=== PATIENT | female | born 1975 | race Hispanic/Latino ===

== ENCOUNTER 2017-08-21 13:27 | Inpatient (IN) | payer OTHER ==
[~2017-08-21] VITALS: Ht 154.9 cm; Wt 54.5 kg
[2017-08-21 14:05] LABS: BASOPHILS % (AUTO) 0.7 % (0.0-5.0); EOSINOPHILS % (AUTO) 2.2 % (0.0-8.0); MEAN CORPUSCULAR HGB CONC 34.3 g/dL (32.0-36.0); MEAN CORPUSCULAR VOLUME 81.6 fL (79-99); MONOCYTES % (AUTO) 6.3 % (3.0-13.0); NEUTROPHILS % (AUTO) 62.8 % (40.0-77.0); NUCLEATED RED BLOOD CELLS 0.1 % (0.0-0.19); PLATELET COUNT (AUTO) 200 K/uL (130-400); RED BLOOD CELL COUNT(AUTO) 4.16 MIL/uL (4.00-5.50); WHITE BLOOD COUNT (AUTO) 6.6 K/uL (4.8-10.8)
[2017-08-21 14:18] LABS: APPEARANCE,URINE Cloudy (CLEAR); BILIRUBIN,URINE Negative (NEGATIVE); COLOR,URINE Yellow (YELLOW); GLUCOSE, URINE (UA) Negative (NEGATIVE); KETONES,URINE Negative (NEGATIVE); LEUKOCYTE ESTERASE ,URINE Negative (NEGATIVE); NITRATE,URINE Negative (NEGATIVE); OCCULT BLOOD,URINE Moderate (NEGATIVE); PH,URINE 5.5 (5.0-8.0); PROTEIN,URINE Negative (NEGATIVE); UROBILINOGEN,URINE 0.2 mg/dL (0.2-1.0)
[2017-08-21 14:22] LABS: HCG,QUAL RESULT NEGATIVE (NEGATIVE)
[2017-08-21 14:36] LABS: CREATININE 0.5 mg/dL (0.5-1.5)
[2017-08-21 14:41] LABS: ALBUMIN 3.5 g/dL (3.5-5.0); BILIRUBIN,TOTAL 0.5 mg/dL (0.2-1.0); TOTAL PROTEIN, SERUM 7.8 g/dL (6.0-8.3)
[2017-08-21 14:53] LABS: BACTERIA,URINE Rare /HPF (None Seen); RBC,URINE 0-1 /HPF (0-1); SQUAMOUS EPITHELIAL CELL,UR Rare /HPF (0-2)
[2017-08-21] MEDS ORDERED: TRAMADOL HCL 50 MG TABLET ONE (16:47)
[2017-08-21] MEDS ORDERED: CEFTRIAXONE SODIUM 1 GM ONE (17:10)
[2017-08-21] MEDS ORDERED: SODIUM CHLORIDE 0.9% 50 ML IV ONE (17:10)
[2017-08-21] MEDS ORDERED: SODIUM CHLORIDE 0.9% 1000ML 1,000 ML IV ONE ×2 (17:10→20:23)
[2017-08-21] MEDS ORDERED: MORPHINE SULFATE 4 MG/1ML SYG ONE (17:10)
[2017-08-21] MEDS ORDERED: ONDANSETRON HCL MDV 20ML 2 MG/ML VIAL ONE (17:10)
[2017-08-21] MEDS ORDERED: CEFTRIAXONE 1GM/D5W 50ML 50 ML IV SCH (20:00)
[2017-08-21] MEDS ORDERED: CEFTRIAXONE SODIUM 1 GM IVP SCH (20:00)
[2017-08-21] MEDS ORDERED: FAMOTIDINE 20MG TAB 20 MG TAB PO SCH (20:30)
[2017-08-21] MEDS ORDERED: FAMOTIDINE 20MG TAB 20 MG TAB ONE (21:11)
[2017-08-22] MEDS ORDERED: MORPHINE SULFATE 2 MG/ML 1ML SYG ONE ×2 (00:22→06:33)
[2017-08-22] MEDS ORDERED: ONDANSETRON HCL MDV 20ML 2 MG/ML VIAL ONE (06:33)
[2017-08-22 07:35] LABS: BASOPHILS % (AUTO) 0.5 % (0.0-5.0); EOSINOPHILS % (AUTO) 3.3 % (0.0-8.0); HEMATOCRIT 32.9 % (36-48); LYMPHOCYTES % (AUTO) 26.1 % (21.0-51.0); MEAN CORPUSCULAR HEMOGLOBIN 28.4 pg (27.0-33.0); MEAN CORPUSCULAR HGB CONC 34.1 g/dL (32.0-36.0); MEAN CORPUSCULAR VOLUME 83.1 fL (79-99); MONOCYTES % (AUTO) 7.7 % (3.0-13.0); NEUTROPHILS % (AUTO) 62.4 % (40.0-77.0); PLATELET COUNT (AUTO) 156 K/uL (130-400); RED BLOOD CELL COUNT(AUTO) 3.96 MIL/uL (4.00-5.50); RED CELL DISTRIBUTION WIDTH 14.1 % (11.0-15.5); WHITE BLOOD COUNT (AUTO) 4.8 K/uL (4.8-10.8)
[2017-08-22 07:42] LABS: CREATININE 0.6 mg/dL (0.5-1.5); POTASSIUM 3.3 mmol/L (3.5-5.1)
[2017-08-22 08:15] VITALS: BP 130/68
[2017-08-22] MEDS ORDERED: ZOSYN 3.375GM+NS 50ML 50 ML IV SCH (08:30)
[2017-08-22] MEDS ORDERED: MORPHINE SULFATE 2 MG/ML 1ML SYG IVP PRN (08:45)
[2017-08-22] MEDS: SODIUM CHLORIDE 0.9% 1000ML 1,000 ML IV SCH (09:19)
[2017-08-22] MEDS: MEROPENEM 1 GM VIAL IVP SCH ×2 (09:20→18:10)
[2017-08-22] MEDS: ENOXAPARIN SODIUM 40 MG/0.4 ML SYRINGE SQ SCH (09:48)
[2017-08-22] MEDS ORDERED: MORPHINE SULFATE 2 MG/ML 1ML SYG IM PRN (11:00)
[2017-08-22 12:00] VITALS: BP 139/85
[2017-08-22] MEDS: FAMOTIDINE 20MG TAB 20 MG TAB PO SCH ×2 (12:00→20:31)
[2017-08-22] MEDS: ONDANSETRON HCL MDV 20ML 2 MG/ML VIAL IVP PRN (12:05)
[2017-08-22 16:00] VITALS: BP 125/68
[2017-08-22] MEDS: MORPHINE SULFATE 4 MG/1ML SYG IVP PRN ×2 (17:49→23:47)
[2017-08-22] MEDS: POTASSIUM CHLORIDE 20MEQ/100ML 100 ML IV PRN ×2 (17:58→23:41)
[2017-08-22] MEDS: LIDOCAINE HCL-MPF 1% 2ML VIAL IVP PRN ×2 (17:58→23:41)
[2017-08-22] MEDS: PROMETHAZINE HCL 25 MG/ML 1ML AMPULE IM PRN ×2 (17:58→23:58)
[2017-08-22 20:00] VITALS: BP 137/87
[2017-08-23] VITALS: BP 145/74
[2017-08-23] MEDS: MEROPENEM 1 GM VIAL IVP SCH ×3 (00:01→17:13)
[2017-08-23] MEDS: SODIUM CHLORIDE 0.9% 1000ML 1,000 ML IV SCH ×2 (01:09→17:26)
[2017-08-23 04:00] VITALS: BP 142/77
[2017-08-23 06:01] LABS: HEMATOCRIT 31.8 % (36-48); MEAN CORPUSCULAR HEMOGLOBIN 28.2 pg (27.0-33.0); MEAN CORPUSCULAR HGB CONC 34.3 g/dL (32.0-36.0); MEAN CORPUSCULAR VOLUME 82.2 fL (79-99); PLATELET COUNT (AUTO) 175 K/uL (130-400); RED BLOOD CELL COUNT(AUTO) 3.87 MIL/uL (4.00-5.50); RED CELL DISTRIBUTION WIDTH 14.1 % (11.0-15.5); WHITE BLOOD COUNT (AUTO) 4.3 K/uL (4.8-10.8)
[2017-08-23 06:11] LABS: CREATININE 0.5 mg/dL (0.5-1.5); POTASSIUM 3.7 mmol/L (3.5-5.1)
[2017-08-23 08:00] VITALS: BP 133/95
[2017-08-23] MEDS: FAMOTIDINE 20MG TAB 20 MG TAB PO SCH ×2 (08:05→20:19)
[2017-08-23] MEDS: ENOXAPARIN SODIUM 40 MG/0.4 ML SYRINGE SQ SCH (08:07)
[2017-08-23] MEDS: MORPHINE SULFATE 4 MG/1ML SYG IVP PRN ×3 (08:11→20:18)
[2017-08-23] MEDS: PROMETHAZINE HCL 25 MG/ML 1ML AMPULE IM PRN ×2 (08:11→17:13)
[2017-08-23 12:00] VITALS: BP 134/78
[2017-08-23] MEDS ORDERED: DIATR MEGLU/DIATRIZOATE SODIUM 30 ML BOTTLE ONE (15:34)
[2017-08-23 16:00] VITALS: BP 127/89
[2017-08-23] MEDS ORDERED: IOPAMIDOL-370 75 ML VIAL IV ONE (17:36)
[2017-08-23] MEDS ORDERED: GUAIFENESIN-DM 200/20 MG 10 ML PO PRN (18:00)
[2017-08-23] MEDS: IPRATROPIUM 0.5 MG/2.5 ML INH IH SCH ×2 (19:28→23:50)
[2017-08-23 20:00] VITALS: BP 134/86
[2017-08-24] VITALS: BP 130/85
[2017-08-24] MEDS: MEROPENEM 1 GM VIAL IVP SCH ×3 (02:13→17:48)
[2017-08-24] MEDS: MORPHINE SULFATE 4 MG/1ML SYG IVP PRN ×5 (02:20→23:09)
[2017-08-24] MEDS: PROMETHAZINE HCL 25 MG/ML 1ML AMPULE IM PRN ×4 (02:20→23:12)
[2017-08-24 04:00] VITALS: BP 131/76
[2017-08-24 04:59] LABS: HEMATOCRIT 32.4 % (36-48); MEAN CORPUSCULAR HEMOGLOBIN 28.5 pg (27.0-33.0); MEAN CORPUSCULAR HGB CONC 34.7 g/dL (32.0-36.0); MEAN CORPUSCULAR VOLUME 82.1 fL (79-99); PLATELET COUNT (AUTO) 171 K/uL (130-400); RED BLOOD CELL COUNT(AUTO) 3.95 MIL/uL (4.00-5.50); RED CELL DISTRIBUTION WIDTH 14.3 % (11.0-15.5); WHITE BLOOD COUNT (AUTO) 4.7 K/uL (4.8-10.8)
[2017-08-24 05:09] LABS: CREATININE 0.6 mg/dL (0.5-1.5); POTASSIUM 3.6 mmol/L (3.5-5.1)
[2017-08-24] MEDS: IPRATROPIUM 0.5 MG/2.5 ML INH IH SCH ×4 (06:28→23:20)
[2017-08-24 08:10] VITALS: BP 143/75
[2017-08-24] MEDS: SODIUM CHLORIDE 0.9% 1000ML 1,000 ML IV SCH (08:42)
[2017-08-24] MEDS: POTASSIUM CHLORIDE 20MEQ/100ML 100 ML IV PRN (08:43)
[2017-08-24] MEDS: FAMOTIDINE 20MG TAB 20 MG TAB PO SCH ×3 (08:44→20:07)
[2017-08-24] MEDS: LIDOCAINE HCL-MPF 1% 2ML VIAL IVP PRN (08:44)
[2017-08-24] MEDS: ENOXAPARIN SODIUM 40 MG/0.4 ML SYRINGE SQ SCH (08:45)
[2017-08-24] MEDS: ONDANSETRON HCL MDV 20ML 2 MG/ML VIAL IVP PRN (08:46)
[2017-08-24 11:53] VITALS: BP 158/84
[2017-08-24 16:33] VITALS: BP 132/77
[2017-08-24] MEDS: DEXTROSE 5 % AND 0.9 % NACL 1,000 ML IV SCH (18:35)
[2017-08-24 19:22] VITALS: BP 151/69
[2017-08-25] VITALS (7 sets, daily range): BP systolic 100–145; BP diastolic 69–90
[2017-08-25] MEDS: MEROPENEM 1 GM VIAL IVP SCH ×2 (00:58→08:15)
[2017-08-25 05:48] LABS: HEMATOCRIT 33.7 % (36-48); MEAN CORPUSCULAR HEMOGLOBIN 28.1 pg (27.0-33.0); MEAN CORPUSCULAR HGB CONC 34.3 g/dL (32.0-36.0); MEAN CORPUSCULAR VOLUME 81.9 fL (79-99); PLATELET COUNT (AUTO) 197 K/uL (130-400); RED BLOOD CELL COUNT(AUTO) 4.12 MIL/uL (4.00-5.50); WHITE BLOOD COUNT (AUTO) 5.4 K/uL (4.8-10.8)
[2017-08-25] MEDS: IPRATROPIUM 0.5 MG/2.5 ML INH IH SCH ×4 (07:13→23:03)
[2017-08-25] MEDS: DEXTROSE 5 % AND 0.9 % NACL 1,000 ML IV SCH ×2 (08:15→19:25)
[2017-08-25] MEDS: PROMETHAZINE HCL 25 MG/ML 1ML AMPULE IM PRN ×2 (08:16→13:47)
[2017-08-25] MEDS: MORPHINE SULFATE 4 MG/1ML SYG IVP PRN ×2 (08:16→13:47)
[2017-08-25] MEDS: FAMOTIDINE 20MG TAB 20 MG TAB PO SCH ×2 (08:17→20:07)
[2017-08-25] MEDS: ENOXAPARIN SODIUM 40 MG/0.4 ML SYRINGE SQ SCH (08:17)
[2017-08-25] MEDS ORDERED: PROCALAMINE IV SOLUTION 1,000 ML IV SCH (13:00)
[2017-08-25] MEDS: METRONIDAZOLE 500MG/100ML BAG 100 ML IV SCH ×2 (18:29→23:32)
[2017-08-25] MEDS: LACTATED RINGERS 1000ML 1,000 ML IV SCH (19:19)
[2017-08-25] MEDS: ONDANSETRON HCL MDV 20ML 2 MG/ML VIAL IVP PRN (20:14)
[2017-08-25] MEDS: MEPERIDINE-PF 25 MG/ML SYG IVP PRN ×2 (20:14→23:38)
[2017-08-25] MEDS: CEFTAZIDIME PENTAHYDRATE 1 GM/VIAL IVP SCH (21:51)
[2017-08-25] MEDS ORDERED: CEFTAZIDIME 1GM+NS 50ML 50 ML IV SCH (22:00)
[2017-08-26 04:05] VITALS: BP 110/65
[2017-08-26] MEDS: LACTATED RINGERS 1000ML 1,000 ML IV SCH ×2 (05:16→14:10)
[2017-08-26] MEDS: METRONIDAZOLE 500MG/100ML BAG 100 ML IV SCH ×3 (05:20→17:43)
[2017-08-26] MEDS: CEFTAZIDIME PENTAHYDRATE 1 GM/VIAL IVP SCH ×3 (05:20→22:03)
[2017-08-26 05:28] LABS: MEAN CORPUSCULAR HEMOGLOBIN 28.8 pg (27.0-33.0); MEAN CORPUSCULAR HGB CONC 35.3 g/dL (32.0-36.0); MEAN CORPUSCULAR VOLUME 81.7 fL (79-99); NUCLEATED RED BLOOD CELLS 0.1 % (0.0-0.19); PLATELET COUNT (AUTO) 186 K/uL (130-400); RED BLOOD CELL COUNT(AUTO) 4.04 MIL/uL (4.00-5.50); WHITE BLOOD COUNT (AUTO) 4.9 K/uL (4.8-10.8)
[2017-08-26] MEDS: IPRATROPIUM 0.5 MG/2.5 ML INH IH SCH ×3 (05:48→19:08)
[2017-08-26 05:49] LABS: CREATININE 0.6 mg/dL (0.5-1.5); POTASSIUM 3.7 mmol/L (3.5-5.1)
[2017-08-26 06:31] LABS: BASOPHILS % (MANUAL) 1 % (0-2); EOSINOPHILS % (MANUAL) 2 % (1-6); LYMPHOCYTES % (MANUAL) 32 % (22-44); MONOCYTES % (MANUAL) 7 % (2-9); REACTIVE LYMPHOCYTES 1 % (0-0); SEGMENTED NEUTROPHILS % 57 % (40-70)
[2017-08-26 06:33] LABS: MAN.DIFF COMMENT-IMPRESSION MANUAL DIFFERENTIAL; PLATELET MORPHOLOGY COMMENT ADEQUATE
[2017-08-26 08:00] VITALS: BP 99/71
[2017-08-26] MEDS ORDERED: PROCALAMINE IV SOLUTION 1,000 ML IV SCH (09:00)
[2017-08-26] MEDS ORDERED: MEROPENEM 1 GM VIAL IVP SCH (09:00)
[2017-08-26] MEDS: FAMOTIDINE 20MG TAB 20 MG TAB PO SCH ×2 (09:19→20:07)
[2017-08-26] MEDS: ENOXAPARIN SODIUM 40 MG/0.4 ML SYRINGE SQ SCH (09:21)
[2017-08-26] MEDS: MEPERIDINE-PF 25 MG/ML SYG IVP PRN ×3 (09:45→20:08)
[2017-08-26] MEDS: ONDANSETRON HCL MDV 20ML 2 MG/ML VIAL IVP PRN ×3 (09:45→20:08)
[2017-08-26 11:26] VITALS: BP 118/77
[2017-08-26 16:00] VITALS: BP 151/92
[2017-08-26 19:51] VITALS: BP 120/61
[2017-08-26 23:40] VITALS: BP 147/88
[2017-08-27] MEDS: IPRATROPIUM 0.5 MG/2.5 ML INH IH SCH ×5 (00:02→23:30)
[2017-08-27] MEDS: METRONIDAZOLE 500MG/100ML BAG 100 ML IV SCH ×5 (00:21→23:54)
[2017-08-27] MEDS: MEPERIDINE-PF 25 MG/ML SYG IVP PRN ×5 (00:21→20:17)
[2017-08-27] MEDS: LACTATED RINGERS 1000ML 1,000 ML IV SCH ×5 (01:07→20:43)
[2017-08-27 04:30] VITALS: BP 114/54
[2017-08-27 05:26] LABS: BASOPHILS % (AUTO) 0.7 % (0.0-5.0); HEMATOCRIT 31.8 % (36-48); LYMPHOCYTES % (AUTO) 38.2 % (21.0-51.0); MEAN CORPUSCULAR HEMOGLOBIN 28.2 pg (27.0-33.0); MEAN CORPUSCULAR HGB CONC 34.5 g/dL (32.0-36.0); MEAN CORPUSCULAR VOLUME 81.6 fL (79-99); MONOCYTES % (AUTO) 8.6 % (3.0-13.0); NEUTROPHILS % (AUTO) 48.5 % (40.0-77.0); PLATELET COUNT (AUTO) 182 K/uL (130-400); WHITE BLOOD COUNT (AUTO) 5.2 K/uL (4.8-10.8)
[2017-08-27 05:38] LABS: CREATININE 0.5 mg/dL (0.5-1.5); POTASSIUM 3.5 mmol/L (3.5-5.1)
[2017-08-27] MEDS: CEFTAZIDIME PENTAHYDRATE 1 GM/VIAL IVP SCH ×3 (05:47→22:01)
[2017-08-27] MEDS: ONDANSETRON HCL MDV 20ML 2 MG/ML VIAL IVP PRN ×2 (05:53→20:18)
[2017-08-27] MEDS: LIDOCAINE HCL-MPF 1% 2ML VIAL IVP PRN (06:42)
[2017-08-27] MEDS: POTASSIUM CHLORIDE 20MEQ/100ML 100 ML IV PRN (06:42)
[2017-08-27 08:00] VITALS: BP 134/79
[2017-08-27] MEDS: FAMOTIDINE 20MG TAB 20 MG TAB PO SCH ×2 (09:00→20:12)
[2017-08-27] MEDS: ENOXAPARIN SODIUM 40 MG/0.4 ML SYRINGE SQ SCH (10:02)
[2017-08-27 12:00] VITALS: BP_SYST 129; BP_SYST 166; BP_DIAS 87; BP_DIAS 88
[2017-08-27 16:00] VITALS: BP 138/86
[2017-08-27 20:47] VITALS: BP 151/73
[2017-08-27] MEDS: PANTOPRAZOLE 40 MG/VIAL IVP SCH (21:01)
[2017-08-27 23:48] VITALS: BP 126/76
[2017-08-28] MEDS: MEPERIDINE-PF 25 MG/ML SYG IVP PRN ×5 (00:02→21:46)
[2017-08-28 04:00] VITALS: BP 136/80
[2017-08-28 05:24] LABS: BASOPHILS % (AUTO) 0.7 % (0.0-5.0); EOSINOPHILS % (AUTO) 4.6 % (0.0-8.0); HEMATOCRIT 31.3 % (36-48); LYMPHOCYTES % (AUTO) 32.4 % (21.0-51.0); MEAN CORPUSCULAR HEMOGLOBIN 29.2 pg (27.0-33.0); MEAN CORPUSCULAR HGB CONC 35.8 g/dL (32.0-36.0); MEAN CORPUSCULAR VOLUME 81.4 fL (79-99); MONOCYTES % (AUTO) 8.5 % (3.0-13.0); NEUTROPHILS % (AUTO) 53.8 % (40.0-77.0); PLATELET COUNT (AUTO) 188 K/uL (130-400); RED BLOOD CELL COUNT(AUTO) 3.85 MIL/uL (4.00-5.50); RED CELL DISTRIBUTION WIDTH 13.9 % (11.0-15.5); WHITE BLOOD COUNT (AUTO) 5.3 K/uL (4.8-10.8)
[2017-08-28 05:35] LABS: CREATININE 0.6 mg/dL (0.5-1.5); POTASSIUM 3.6 mmol/L (3.5-5.1)
[2017-08-28] MEDS: METRONIDAZOLE 500MG/100ML BAG 100 ML IV SCH ×4 (05:52→23:53)
[2017-08-28] MEDS: CEFTAZIDIME PENTAHYDRATE 1 GM/VIAL IVP SCH ×3 (05:53→21:45)
[2017-08-28] MEDS: IPRATROPIUM 0.5 MG/2.5 ML INH IH SCH ×4 (06:05→23:13)
[2017-08-28] MEDS: LIDOCAINE HCL-MPF 1% 2ML VIAL IVP PRN (06:30)
[2017-08-28] MEDS: LACTATED RINGERS 1000ML 1,000 ML IV SCH ×3 (06:30→21:57)
[2017-08-28] MEDS: POTASSIUM CHLORIDE 20MEQ/100ML 100 ML IV PRN (06:30)
[2017-08-28 07:30] VITALS: BP 127/78
[2017-08-28] MEDS: ENOXAPARIN SODIUM 40 MG/0.4 ML SYRINGE SQ SCH (09:42)
[2017-08-28] MEDS: PANTOPRAZOLE 40 MG/VIAL IVP SCH (09:44)
[2017-08-28 11:00] VITALS: BP 124/74
[2017-08-28] MEDS: ONDANSETRON HCL MDV 20ML 2 MG/ML VIAL IVP PRN ×2 (14:09→21:46)
[2017-08-28 16:00] VITALS: BP 127/77
[2017-08-28] MEDS ORDERED: MAGNESIUM HYDROXIDE 30 ML/UDCUP PO ONE (19:30)
[2017-08-28] MEDS ORDERED: LACTULOSE 20 GM/30 ML UDCUP PO ONE (19:30)
[2017-08-28 19:43] VITALS: BP 126/78
[2017-08-29] VITALS (7 sets, daily range): BP systolic 127–153; BP diastolic 75–100
[2017-08-29] MEDS: MEPERIDINE-PF 25 MG/ML SYG IVP PRN ×5 (00:51→23:11)
[2017-08-29 05:00] LABS: BASOPHILS % (AUTO) 0.7 % (0.0-5.0); EOSINOPHILS % (AUTO) 4.1 % (0.0-8.0); HEMATOCRIT 31.8 % (36-48); LYMPHOCYTES % (AUTO) 36.5 % (21.0-51.0); MEAN CORPUSCULAR HEMOGLOBIN 27.7 pg (27.0-33.0); MEAN CORPUSCULAR HGB CONC 34.3 g/dL (32.0-36.0); MEAN CORPUSCULAR VOLUME 80.9 fL (79-99); NEUTROPHILS % (AUTO) 51.7 % (40.0-77.0); PLATELET COUNT (AUTO) 183 K/uL (130-400); RED BLOOD CELL COUNT(AUTO) 3.94 MIL/uL (4.00-5.50); RED CELL DISTRIBUTION WIDTH 13.6 % (11.0-15.5)
[2017-08-29 05:15] LABS: CREATININE 0.6 mg/dL (0.5-1.5); POTASSIUM 3.7 mmol/L (3.5-5.1)
[2017-08-29] MEDS: METRONIDAZOLE 500MG/100ML BAG 100 ML IV SCH (05:19)
[2017-08-29] MEDS: CEFTAZIDIME PENTAHYDRATE 1 GM/VIAL IVP SCH (05:19)
[2017-08-29] MEDS: POTASSIUM CHLORIDE 20 MEQ ERTAB PO PRN ×2 (05:20→09:12)
[2017-08-29] MEDS: IPRATROPIUM 0.5 MG/2.5 ML INH IH SCH ×4 (06:20→23:28)
[2017-08-29] MEDS: PANTOPRAZOLE 40 MG/VIAL IVP SCH (09:11)
[2017-08-29] MEDS: ENOXAPARIN SODIUM 40 MG/0.4 ML SYRINGE SQ SCH (09:13)
[2017-08-29] MEDS: LACTATED RINGERS 1000ML 1,000 ML IV SCH ×2 (09:19→16:47)
[2017-08-29] MEDS: ONDANSETRON HCL MDV 20ML 2 MG/ML VIAL IVP PRN ×2 (14:59→23:10)
[2017-08-30] VITALS: BP 145/86
[2017-08-30] MEDS: MEPERIDINE-PF 25 MG/ML SYG IVP PRN ×6 (02:52→23:39)
[2017-08-30 03:35] VITALS: BP 136/79
[2017-08-30 05:19] LABS: BASOPHILS % (AUTO) 0.7 % (0.0-5.0); EOSINOPHILS % (AUTO) 3.7 % (0.0-8.0); HEMATOCRIT 34.3 % (36-48); LYMPHOCYTES % (AUTO) 41.5 % (21.0-51.0); MEAN CORPUSCULAR HEMOGLOBIN 28.7 pg (27.0-33.0); MEAN CORPUSCULAR HGB CONC 35.1 g/dL (32.0-36.0); MEAN CORPUSCULAR VOLUME 81.8 fL (79-99); MONOCYTES % (AUTO) 8.1 % (3.0-13.0); PLATELET COUNT (AUTO) 201 K/uL (130-400); RED BLOOD CELL COUNT(AUTO) 4.19 MIL/uL (4.00-5.50); RED CELL DISTRIBUTION WIDTH 13.6 % (11.0-15.5); WHITE BLOOD COUNT (AUTO) 5.2 K/uL (4.8-10.8)
[2017-08-30 05:30] LABS: CREATININE 0.6 mg/dL (0.5-1.5)
[2017-08-30] MEDS: IPRATROPIUM 0.5 MG/2.5 ML INH IH SCH ×4 (06:18→23:23)
[2017-08-30 08:02] VITALS: BP 147/76
[2017-08-30] MEDS: ENOXAPARIN SODIUM 40 MG/0.4 ML SYRINGE SQ SCH (08:12)
[2017-08-30] MEDS: PANTOPRAZOLE 40 MG/VIAL IVP SCH (08:17)
[2017-08-30] MEDS: LACTATED RINGERS 1000ML 1,000 ML IV SCH ×2 (08:17→20:30)
[2017-08-30 11:28] VITALS: BP 132/60
[2017-08-30] MEDS: ONDANSETRON HCL MDV 20ML 2 MG/ML VIAL IVP PRN ×2 (11:30→20:24)
[2017-08-30] MEDS: DICYCLOMINE HCL 20 MG TAB PO PRN (14:39)
[2017-08-30] MEDS: AMOXICILLIN/POTASSIUM CLAV 875-125 TABLET PO SCH (14:39)
[2017-08-30 16:23] VITALS: BP 148/90
[2017-08-30 20:08] VITALS: BP 146/95
[2017-08-31 00:10] VITALS: BP 159/109
[2017-08-31] MEDS: AMOXICILLIN/POTASSIUM CLAV 875-125 TABLET PO SCH ×2 (01:34→13:29)
[2017-08-31 03:47] VITALS: BP 129/90
[2017-08-31] MEDS: MEPERIDINE-PF 25 MG/ML SYG IVP PRN ×6 (04:15→23:05)
[2017-08-31 04:59] LABS: BASOPHILS % (AUTO) 0.8 % (0.0-5.0); EOSINOPHILS % (AUTO) 3.1 % (0.0-8.0); HEMATOCRIT 33.9 % (36-48); LYMPHOCYTES % (AUTO) 41.7 % (21.0-51.0); MEAN CORPUSCULAR HEMOGLOBIN 27.6 pg (27.0-33.0); MEAN CORPUSCULAR HGB CONC 33.9 g/dL (32.0-36.0); MEAN CORPUSCULAR VOLUME 81.3 fL (79-99); NEUTROPHILS % (AUTO) 47.4 % (40.0-77.0); NUCLEATED RED BLOOD CELLS 0.1 % (0.0-0.19); PLATELET COUNT (AUTO) 205 K/uL (130-400); RED BLOOD CELL COUNT(AUTO) 4.16 MIL/uL (4.00-5.50); RED CELL DISTRIBUTION WIDTH 13.8 % (11.0-15.5); WHITE BLOOD COUNT (AUTO) 4.9 K/uL (4.8-10.8)
[2017-08-31 05:07] LABS: CREATININE 0.6 mg/dL (0.5-1.5); POTASSIUM 3.5 mmol/L (3.5-5.1)
[2017-08-31] MEDS: IPRATROPIUM 0.5 MG/2.5 ML INH IH SCH (06:05)
[2017-08-31 07:36] VITALS: BP 168/80
[2017-08-31] MEDS: PANTOPRAZOLE 40 MG/VIAL IVP SCH (08:42)
[2017-08-31] MEDS: ENOXAPARIN SODIUM 40 MG/0.4 ML SYRINGE SQ SCH (08:43)
[2017-08-31] MEDS: POTASSIUM CHLORIDE 10% ELIXIR 20 MEQ/15 ML UDCUP PO PRN ×2 (08:43→12:00)
[2017-08-31] MEDS: LACTATED RINGERS 1000ML 1,000 ML IV SCH ×3 (10:30→19:06)
[2017-08-31 10:57] VITALS: BP 121/72
[2017-08-31] MEDS: ONDANSETRON HCL MDV 20ML 2 MG/ML VIAL IVP PRN ×2 (16:03→23:05)
[2017-08-31 16:26] VITALS: BP 147/91
[2017-08-31 20:00] VITALS: BP 138/88
[2017-09-01] VITALS (7 sets, daily range): BP systolic 123–162; BP diastolic 73–92
[2017-09-01] MEDS: AMOXICILLIN/POTASSIUM CLAV 875-125 TABLET PO SCH ×2 (01:29→12:26)
[2017-09-01] MEDS: ONDANSETRON HCL MDV 20ML 2 MG/ML VIAL IVP PRN ×3 (04:53→21:43)
[2017-09-01] MEDS: MEPERIDINE-PF 25 MG/ML SYG IVP PRN ×6 (04:53→23:56)
[2017-09-01 05:19] LABS: BASOPHILS % (AUTO) 0.8 % (0.0-5.0); EOSINOPHILS % (AUTO) 3.9 % (0.0-8.0); HEMATOCRIT 33.1 % (36-48); LYMPHOCYTES % (AUTO) 40.8 % (21.0-51.0); MEAN CORPUSCULAR HEMOGLOBIN 28.5 pg (27.0-33.0); MEAN CORPUSCULAR HGB CONC 34.7 g/dL (32.0-36.0); MEAN CORPUSCULAR VOLUME 82.3 fL (79-99); MONOCYTES % (AUTO) 7.5 % (3.0-13.0); NUCLEATED RED BLOOD CELLS 0.1 % (0.0-0.19); PLATELET COUNT (AUTO) 213 K/uL (130-400); RED BLOOD CELL COUNT(AUTO) 4.03 MIL/uL (4.00-5.50); RED CELL DISTRIBUTION WIDTH 13.6 % (11.0-15.5); WHITE BLOOD COUNT (AUTO) 5.1 K/uL (4.8-10.8)
[2017-09-01 05:25] LABS: CREATININE 0.6 mg/dL (0.5-1.5)
[2017-09-01] MEDS: ENOXAPARIN SODIUM 40 MG/0.4 ML SYRINGE SQ SCH (08:22)
[2017-09-01] MEDS: DICYCLOMINE HCL 20 MG TAB PO PRN (10:56)
[2017-09-01] MEDS: LACTATED RINGERS 1000ML 1,000 ML IV SCH ×2 (10:56→21:43)
[2017-09-01] MEDS: PANTOPRAZOLE 40 MG/VIAL IVP SCH (10:56)
[2017-09-02] MEDS: AMOXICILLIN/POTASSIUM CLAV 875-125 TABLET PO SCH ×2 (02:31→14:27)
[2017-09-02] MEDS: ONDANSETRON HCL MDV 20ML 2 MG/ML VIAL IVP PRN ×3 (04:16→22:44)
[2017-09-02] MEDS: MEPERIDINE-PF 25 MG/ML SYG IVP PRN ×6 (04:19→22:11)
[2017-09-02 04:20] VITALS: BP 152/87
[2017-09-02 07:49] VITALS: BP 139/88
[2017-09-02] MEDS: PANTOPRAZOLE 40 MG/VIAL IVP SCH (08:19)
[2017-09-02] MEDS: LACTATED RINGERS 1000ML 1,000 ML IV SCH ×2 (08:20→20:57)
[2017-09-02] MEDS: ENOXAPARIN SODIUM 40 MG/0.4 ML SYRINGE SQ SCH (08:20)
[2017-09-02] MEDS: HYDROCHLOROTHIAZIDE 25 MG TABLET PO SCH (10:00)
[2017-09-02 11:34] VITALS: BP 141/80
[2017-09-02 16:08] VITALS: BP 127/81
[2017-09-02] MEDS: PROMETHAZINE HCL 25 MG/ML 1ML AMPULE IM PRN (18:49)
[2017-09-02 20:00] VITALS: BP 130/90
[2017-09-02 21:02] LABS: MEAN CORPUSCULAR HEMOGLOBIN 27.7 pg (27.0-33.0); MEAN CORPUSCULAR HGB CONC 33.8 g/dL (32.0-36.0); PLATELET COUNT (AUTO) 223 K/uL (130-400); WHITE BLOOD COUNT (AUTO) 4.1 K/uL (4.8-10.8)
[2017-09-02 21:11] LABS: CREATININE 0.7 mg/dL (0.5-1.5); POTASSIUM 3.6 mmol/L (3.5-5.1)
[2017-09-02] MEDS: POTASSIUM CHLORIDE 10% ELIXIR 20 MEQ/15 ML UDCUP PO PRN (22:39)
[2017-09-02 23:50] VITALS: BP 108/76
[2017-09-03] VITALS (20 sets, daily range): BP systolic 108–148; BP diastolic 67–96
[2017-09-03] MEDS: AMOXICILLIN/POTASSIUM CLAV 875-125 TABLET PO SCH (01:18)
[2017-09-03] MEDS: LACTATED RINGERS 1000ML 1,000 ML IV SCH ×4 (01:42→22:54)
[2017-09-03] MEDS: MEPERIDINE-PF 25 MG/ML SYG IVP PRN ×8 (01:42→22:55)
[2017-09-03] MEDS ORDERED: BUPIVACAINE/PF 0.5% 30ML VIAL ONE (05:56)
[2017-09-03] MEDS ORDERED: BUPIVACAINE/EPI/PF 0.25% 30ML VIAL IJ ONE (05:56)
[2017-09-03] MEDS ORDERED: LIDOCAINE PF 2% 5ML ABBOJECT ONE (06:33)
[2017-09-03] MEDS ORDERED: NEOSTIGMINE METHYLSULFATE 1MG/ML IV ONE (06:33)
[2017-09-03] MEDS ORDERED: GLYCOPYRROLATE 0.2 MG/ML 5 ML VIAL ONE (06:33)
[2017-09-03] MEDS ORDERED: LIDOCAINE HCL MPF 1% 5ML VIAL ONE (06:33)
[2017-09-03] MEDS ORDERED: ONDANSETRON HCL MDV 20ML 2 MG/ML VIAL ONE (06:34)
[2017-09-03] MEDS ORDERED: PROPOFOL 10 MG/ML 20ML VIAL IV ONE (06:34)
[2017-09-03] MEDS ORDERED: LIDOCAINE HCL 4% LTA SOL 4 ML VIAL ONE (06:34)
[2017-09-03] MEDS ORDERED: LIDOCAINE HCL 2% JELLY 5 ML ONE (06:34)
[2017-09-03] MEDS ORDERED: FENTANYL CITRATE PF 50 MCG/1 ML 2ML VIAL ONE ×2 (06:34→08:23)
[2017-09-03] MEDS ORDERED: MIDAZOLAM HCL 1 MG/ML 2ML VIAL ONE (06:34)
[2017-09-03] MEDS ORDERED: ROCURONIUM BROMIDE 10MG/1ML 5ML VL ONE (06:34)
[2017-09-03] MEDS: ENOXAPARIN SODIUM 40 MG/0.4 ML SYRINGE SQ SCH (09:00)
[2017-09-03] MEDS: HYDROCHLOROTHIAZIDE 25 MG TABLET PO SCH (09:41)
[2017-09-03] MEDS: PANTOPRAZOLE 40 MG/VIAL IVP SCH (09:41)
[2017-09-03] MEDS: ONDANSETRON HCL MDV 20ML 2 MG/ML VIAL IVP PRN ×2 (09:46→19:44)
[2017-09-03] MEDS ORDERED: ACETAMINOPHEN 325 MG TAB PO PRN (10:00)
[2017-09-03] MEDS ORDERED: TRAMADOL HCL 50 MG TABLET PO PRN (10:00)
[2017-09-03] MEDS: PROMETHAZINE HCL 25 MG/ML 1ML AMPULE IM PRN ×2 (12:29→22:20)
[2017-09-03] MEDS: TRAMADOL HCL 50 MG TABLET PO PRN ×2 (17:26→22:20)
[2017-09-04] MEDS: ONDANSETRON HCL MDV 20ML 2 MG/ML VIAL IVP PRN (03:50)
[2017-09-04] MEDS: MEPERIDINE-PF 25 MG/ML SYG IVP PRN (03:50)
[2017-09-04 04:00] VITALS: BP 166/96
[2017-09-04 05:04] LABS: HEMATOCRIT 31.3 % (36-48); MEAN CORPUSCULAR HEMOGLOBIN 27.8 pg (27.0-33.0); MEAN CORPUSCULAR HGB CONC 33.5 g/dL (32.0-36.0); MEAN CORPUSCULAR VOLUME 83.2 fL (79-99); PLATELET COUNT (AUTO) 213 K/uL (130-400); RED BLOOD CELL COUNT(AUTO) 3.76 MIL/uL (4.00-5.50); RED CELL DISTRIBUTION WIDTH 14.1 % (11.0-15.5); WHITE BLOOD COUNT (AUTO) 7.1 K/uL (4.8-10.8)
[2017-09-04 05:51] LABS: CREATININE 0.5 mg/dL (0.5-1.5); MAGNESIUM 1.7 mg/dL (1.80-2.40); POTASSIUM 3.3 mmol/L (3.5-5.1)
[2017-09-04] MEDS: POTASSIUM CHLORIDE 10% ELIXIR 20 MEQ/15 ML UDCUP PO PRN (06:21)
[2017-09-04 07:30] VITALS: BP 137/84
[2017-09-04] MEDS: PANTOPRAZOLE 40 MG/VIAL IVP SCH (09:02)
[2017-09-04] MEDS: HYDROCHLOROTHIAZIDE 25 MG TABLET PO SCH (09:02)
[2017-09-04] MEDS: TRAMADOL HCL 50 MG TABLET PO PRN ×2 (09:05→16:05)
[2017-09-04 11:00] VITALS: BP 137/86
[2017-09-04] MEDS: PROMETHAZINE HCL 25 MG/ML 1ML AMPULE IM PRN (11:29)
[2017-09-04] MEDS ORDERED: TRAM50TA2 PO (12:58)
[2017-09-04] MEDS ORDERED: ONDA4TAB4 PO (12:58)
[2017-09-04 16:00] VITALS: BP 153/98
[2017-09-04] MEDS: POTASSIUM CHLORIDE 20 MEQ ERTAB PO PRN (18:30)
[2017-09-04 19:40] VITALS: BP 134/84
== END 2017-09-04 20:10 | disposition home or self-care (01) | DRG 742 ==
LOC: EDH 13:27 → EDHIP 13:28 → 4AH 08-22 08:08 → 4BH 08-24 05:00
PROVIDERS: ADMIT Family Medicine; ATTEND Family Medicine
PROC: 0UT14ZZ Resection of Left Ovary, Percutaneous Endoscopic Approach (ICD-10-PCS; principal; 2017-09-03 06:33)
DX: N83.292 Other ovarian cyst, left side (principal); K57.32 Diverticulitis of large intestine without perforation or abscess without bleeding; D64.9 Anemia, unspecified; E87.6 Hypokalemia; K42.9 Umbilical hernia without obstruction or gangrene; N92.0 Excessive and frequent menstruation with regular cycle; Z90.710 Acquired absence of both cervix and uterus
CPT/HCPCS: 36415; 74176; 74178; 76857; 80048; 80053; 81001; 81025; 82150; 83690; 83735; 84132; 85025; 85027; 88307; 94640; 94664; A4218; A4606; C9113; J0696; J0713; J1650; J2001; J2175; J2185; J2250; J2270; J2543; J2550; J2704; J2710; J3010; J3480; J3490; J7030; J7042; J7120; Q9963; Q9967